=== PATIENT | male | born 1985 | race Caucasian/White ===

== ENCOUNTER 2020-12-30 23:17 | Emergency (ER) | payer SELFPAY ==
[~2020-12-30] VITALS: Ht 172.7 cm; Wt 148.0 kg
[2020-12-31] MEDS ORDERED: KETOROLAC 30 MG/1 ML IVPush ONE
[2020-12-31] MEDS ORDERED: SODIUM CHLORIDE 0.9% 1,000ML IVBOLUS ONE
[2020-12-31] MEDS ORDERED: SODIUM CHLORIDE FLUSH 10ML SYR IVF ONE
[2020-12-31] MEDS ORDERED: PROCHLORPERAZINE 5 MG/ML, 2ML IVPush ONE
[2020-12-31] MEDS ORDERED: ACETAMINOPHEN 500 MG TABLET PO ONE
[2020-12-31 00:03] LABS: BASOPHILS % (AUTO) 1 % (0-1); EOSINOPHILS % (AUTO) 0 % (1-7); LYMPHOCYTES % (AUTO) 26 % (22-44); MEAN CORPUSCULAR HEMOGLOBIN 31.3 pg (27.5-34.5); MEAN CORPUSCULAR HGB CONC 34.3 g/dL (33.2-36.2); MEAN PLATELET VOLUME 7.8 fL (7.4-10.4); MONOCYTES % (AUTO) 7 % (2-9); NEUTROPHILS % (AUTO) 66 % (42-75); PLATELET COUNT 213 x10^3/uL (130-400); RED BLOOD COUNT 5.16 x10^6/uL (4.38-5.82); RED CELL DISTRIBUTION WIDTH 12.6 % (9.4-14.8)
[2020-12-31 00:04] LABS: MD NO
[2020-12-31] MEDS ORDERED: KETOROLAC 30 MG/1 ML ONE (00:12)
[2020-12-31] MEDS ORDERED: PROCHLORPERAZINE 5 MG/ML, 2ML ONE (00:12)
[2020-12-31] MEDS ORDERED: ACETAMINOPHEN 500 MG TABLET ONE (00:12)
[2020-12-31 00:17] LABS: ALANINE AMINOTRANSFERASE 58 U/L (12-78); ALBUMIN 3.6 g/dL (3.4-5.0); ANION GAP 7 mmol/L (5-15); CALCIUM 8.7 mg/dL (8.5-10.1); CHLORIDE 103 mmol/L (98-107); CREATININE 0.94 mg/dL (0.7-1.3)
[2020-12-31 00:19] LABS: ALKALINE PHOSPHATASE 93 U/L (45-117); BILIRUBIN,TOTAL 0.8 mg/dL (0.2-1.0); TOTAL PROTEIN 8.4 g/dL (6.4-8.2)
[2020-12-31] MEDS ORDERED: LIDOCAINE-MPF 1%, 5ML ONE (00:40)
[2020-12-31] MEDS ORDERED: ONDANSETRON 2MG/ML, 2ML ONE (00:48)
[2020-12-31] MEDS ORDERED: MORPHINE SULFATE 4 MG/ML, 1ML ONE (00:48)
--- NOTE | 2020-12-31 00:59 | NUR ---
RN AND ERP TO BS FOR LP. PT TOLERATED LP WELL, MEDICATED PER MAR FOR PAIN, PROJECTION PRINTER [id number] USED FOR PROCEDURE. POST MEDICATIONS PT PLACED ON 2L NC FOR SPO2 SATS. PT NOW SITTING IN LOW 90S SPO2. NAD. APPEARS MORE COMFORTABLE. CSF LABELLED AND WLAKED TO LAB. WCTM.
[2020-12-31] MEDS ORDERED: MORPHINE SULFATE 4 MG/ML, 1ML IVPush PRN (01:00)
[2020-12-31] MEDS ORDERED: ONDANSETRON 2MG/ML, 2ML IVPush ONE (01:00)
[2020-12-31 01:25] LABS: GLUCOSE, CSF 63 mg/dL (40-80); TOTAL PROTEIN,CSF 23 mg/dL (15-45)
--- NOTE | 2020-12-31 01:58 | NUR ---
pt resting on [place], clark, awaiting final lab results, appears more comfortable, bed in lowest, rails engaged, sitter in line of sight. wctm.
--- NOTE | 2020-12-31 02:45 | NUR ---
Patient given discharge instructions and they have confirmed that they understand the instructions. Patient ambulatory with steady gait. NAD, ALL QUESTIONS ANSWERED APPROPRIATELY, DENIES ADDITIONAL NEEDS, VSS UPON DC.
[2020-12-31 02:46] VITALS: BP 124/81
== END 2020-12-31 02:48 | disposition home or self-care (01) ==
LOC: ED 12-31 02:42
DX: U07.1 COVID-19 (principal); J02.8 Acute pharyngitis due to other specified organisms; B95.3 Streptococcus pneumoniae as the cause of diseases classified elsewhere; J18.9 Pneumonia, unspecified organism; B09 Unspecified viral infection characterized by skin and mucous membrane lesions; R21 Rash and other nonspecific skin eruption; R51.9 Headache, unspecified; R50.9 Fever, unspecified; R05 Cough; R00.0 Tachycardia, unspecified
CPT/HCPCS: 36415; 62328; 71045; 80053; 82945; 83690; 84157; 85025; 87070; 87081; 87205; 87252; 87880; 89051; 93005; 96361; 96374; 96375; 99285; J0780; J1885; J2270; J2405; J7030; U0003